=== PATIENT | male | born 1950 | race Caucasian/White ===

== ENCOUNTER 2017-04-16 14:42 | Emergency (ER) | payer MEDICARE ==
[2017-04-16 15:59] LABS: Basophils % (Auto) 0.4 % (0.0-1.8); Eosinophils % (Auto) 0.3 % (0.0-4.3); Hematocrit 36.4 % (35.5-45.6); Hemoglobin 12.2 gm/dl (11.8-15.2); Mean Corpuscular HGB Conc 33 % (32-34); Mean Corpuscular Hemoglobin 28 pg (28-32); Mean Corpuscular Volume 83 fl (84-94); Platelet Count 162 K/mm3 (140-440); Red Blood Count 4.39 M/mm3 (3.65-5.03); Red Cell Distribution Width 16.2 % (13.2-15.2); White Blood Count 7.6 K/mm3 (4.5-11.0)
[2017-04-16 16:10] LABS: BUN/Creatinine Ratio 22; Blood Urea Nitrogen 13 mg/dL (9-20); Calcium 8.1 mg/dL (8.4-10.2); Carbon Dioxide 28 mmol/L (22-30); Glucose 123 mg/dL (75-100)
[2017-04-16 16:11] LABS: Anion Gap 15 mmol/L; Chloride 101.7 mmol/L (98-107); Potassium 3.6 mmol/L (3.6-5.0); Sodium 141 mmol/L (137-145)
--- NOTE | 2017-04-16 21:12 | Emergency Department Report ---
HPI - General Chief Complaint: Chest Pain Time Seen by Provider: 04/16/17 20:51 - HPI HPI: Room 3 The patient is a 66-year-old male presented with a chief complaint of back pain. The patient stated this morning when he awakened he noticed pain behind his left shoulder blade described as a heaviness. Patient also complains of pain from the base of his neck radiating to the left shoulder blade. Patient states the pain worsens whenever he turns his head. Patient denies chest pain, shortness of breath or cough. Patient denies fever, nausea/vomiting or headache. The patient currently gives his pain a score of 10/10 Location: Left back, neck Duration: Constant since this morning Quality: Heaviness Severity: 10/10 Modifying factors: Turning head increases pain Context: [see above] Mode of transportation: [not driving] ED Past Medical Hx - Past Medical History Previous Medical History?: Yes Hx Hypertension: Yes Additional medical history: sleep apnea, gout, carpal tunnel - Surgical History Hx Appendectomy: Yes Additional Surgical History: hernia repair, bilat carpal tunnel repair, hip replacement - Family History Family history: no significant - Social History Smoking Status: Never Smoker Substance Use Type: None (denies illicit drug use), Alcohol (occasional) - Medications Home Medications: Home Medications Medication Instructions Recorded Confirmed Last Taken Type Allopurinol [Zyloprim] 300 mg PO QDAY 01/27/17 01/27/17 1 Day Ago History ~01/26/17 300 Carvedilol [Coreg] 6.25 mg PO DAILY 01/27/17 01/27/17 1 Day Ago History ~01/26/17 6.25 Lisinopril [Zestril TAB] 40 mg PO QDAY 01/27/17 01/27/17 1 Day Ago History ~01/26/17 40 amLODIPine [Norvasc] 10 mg PO DAILY 01/27/17 01/27/17 1 Day Ago History ~01/26/17 10 Aspirin EC [Aspirin Enteric Coated 81 mg PO QDAY #30 tablet. 01/30/17 Unknown Rx TAB] Colchicine [Colcrys] 0.6 mg PO QDAY #14 tablet 01/30/17 Unknown Rx Pantoprazole [Protonix] 40 mg PO QDAY #30 tablet 01/30/17 Unknown Rx predniSONE [Deltasone] 20 mg PO BID #14 tablet 01/30/17 Unknown Rx Cyclobenzaprine [Flexeril] 10 mg PO TID PRN #20 tablet 04/16/17 Unknown Rx HYDROcodone/APAP 5-325 [[place] 1 - 2 each PO Q6HR PRN #14 tablet 04/16/17 Unknown Rx 5/325] Ibuprofen [Motrin] 800 mg PO Q8HR PRN #20 tablet 04/16/17 Unknown Rx ED Review of Systems ROS: Stated complaint: LEFT SIDE SHOULDER/BACK PAIN Other details as noted in HPI Constitutional: denies: fever ENT: other (denies rhinorrhea) Respiratory: denies: cough, shortness of breath Cardiovascular: denies: chest pain Gastrointestinal: denies: nausea, vomiting Genitourinary: denies: dysuria Musculoskeletal: back pain, myalgia Neurological: denies: headache Physical Exam - Physical Exam Vital Signs: Vital Signs 04/16/17 04/16/17 15:02 20:30 Temperature 98.1 F 99 F Pulse Rate 81 74 Respiratory 100 H 22 Rate Blood Pressure 164/82 Blood Pressure 168/91 [Left] O2 Sat by Pulse 97 Oximetry Physical Exam: GENERAL: The patient is well-developed well-nourished male lying on stretcher not appearing to be in acute distress. [] HEENT: Normocephalic. Atraumatic. Extraocular motions are intact. Patient has moist mucous membranes. NECK: Supple. No meningitic signs are noted. Trachea midline CHEST/LUNGS: Clear to auscultation. There is no respiratory distress noted. HEART/CARDIOVASCULAR: Regular. There is no tachycardia. There is no gallop rub or murmur. ABDOMEN: Abdomen is soft, nontender. Patient has normal bowel sounds. There is no abdominal distention. SKIN: There is no rash. There is no edema. There is no diaphoresis. NEURO: The patient is awake, alert, and oriented. The patient is cooperative. The patient has no focal neurologic deficits. The patient has normal speech. Cranial nerves II through XII grossly intact MUSCULOSKELETAL: There is no tenderness or deformity. There is pain elicited in the left back when the the patient pushes anteriorly with a left upper extremity against resistance. There is no evidence of acute injury. ED Course Vital Signs 04/16/17 04/16/17 15:02 20:30 Temperature 98.1 F 99 F Pulse Rate 81 74 Respiratory 100 H 22 Rate Blood Pressure 164/82 Blood Pressure 168/91 [Left] O2 Sat by Pulse 97 Oximetry ED Medical Decision Making - Lab Data Result diagrams: 04/16/17 15:16 04/16/17 15:16 - EKG Data -: EKG Interpreted by Ut EKG shows normal: sinus rhythm Rate: normal - EKG Data Interpretation: nonspecific ST-T wave bryan (T-wave inversions in leads 1 and aVL. ) - Radiology Data Radiology results: report reviewed (CT chest, CT cervical spine), image reviewed (CT chest, CT cervical spine) FINAL REPORT PROCEDURE: CT ANGIO CHEST TECHNIQUE: Computerized tomographic angiography of the chest was performed after the IV injection of iodinated nonionic contrast including image processing. The image data was postprocessed using 2-dimensional multiplanar reformatted (MPR) and 3-dimensional (MIP and/or volume rendered) techniques. HISTORY: pain behind left shoulder blade COMPARISON: No prior studies are available for comparison. FINDINGS: Bilateral lungs and pleural spaces are clear. Bilateral pulmonary arteries demonstrate normal enhancement without filling defects. Aorta is of normal caliber without dissection. Thyroid demonstrates normal size and density. Hilar structures are within normal limits. There is no lymphadenopathy. There is moderate cardiomegaly. Visualized upper abdominal structures are within normal limits except for simple cysts noted in bilateral kidneys. Moderate degree degenerative changes in the form of marginal osteophytes is noted involving mid and lower thoracic spine. Vacuum phenomenon is noted involving multiple mid thoracic intervertebral discs. IMPRESSION: No acute pulmonary process. No evidence of pulmonary embolism. No evidence of aortic aneurysm or dissection. Moderate cardiomegaly. Moderate degree thoracic spondylosis Transcribed By: [facility] Dictated By: ELIEL FELIX Electronically Authenticated By: ELIEL FELIX Signed Date/Time: 04/16/171819 DD/ 19 TD/TT: 04/16/171819 FINAL REPORT PROCEDURE: CT CERVICAL SPINE WO CON TECHNIQUE: Computerized tomography of the cervical spine was performed from the skull base to T1 without contrast material. HISTORY: neck pain radiating to left upper extremity COMPARISON: No prior studies are available for comparison. FINDINGS: Vertebral alignment and height are within normal limits. An acute fracture is not identified. A benign-appearing sclerotic lesion measuring 8 millimeters is noted involving the inferior left portion of 4th cervical vertebral body. C1-2: There is narrowing of the atlantoaxial joint space with osteophyte formation.. C2-3: No significant abnormality. C3-4: No significant abnormality. C4-5: Minimal degree left neural foraminal stenosis is noted secondary to uncovertebral and facet degenerative changes.. C5-6: Mild degree of broad-based disc osteophyte complex is noted eccentric to the right without significant spinal canal compromise. Mild degree left-sided and moderate degree right-sided neural foraminal stenosis is noted secondary to uncovertebral and facet degenerative changes. C6-7: Mild degree bilateral neural foraminal stenosis is noted secondary to uncovertebral and facet degenerative changes. C7-T1: No significant abnormality. Other: Atherosclerotic calcification is noted involving bilateral carotid bifurcations.. IMPRESSION: Multilevel cervical spondylosis as described above. No acute fracture. Atherosclerotic calcification is noted involving bilateral carotid bifurcations. Ultrasound evaluation is recommended.. Transcribed By: [facility] Dictated By: ELIEL FELIX Electronically Authenticated By: ELIEL FELIX Signed Date/Time: 04/16/171828 DD/ 28 TD/TT: 04/16/171828 - Differential Diagnosis cervical radiculopathy, PE, ACS, rotator cuff injury Critical care attestation.: If time is entered above; I have spent that time in minutes in the direct care of this critically ill patient, excluding procedure time. ED Disposition Clinical Impression: Neck pain, Cervical spondylosis Disposition: TO HOME OR SELFCARE Is pt being admited?: No Does the pt Need Aspirin: No Condition: Stable Instructions: Rotator Cuff Injury (ED), Cervical Radiculopathy (ED) Additional Instructions: Return to the emergency department immediately should you develop worsening symptoms, fever, inability to tolerate food or liquid or any other concerns. Prescriptions: Cyclobenzaprine [Flexeril] 10 mg PO TID PRN #20 tablet PRN Reason: Muscle Spasm HYDROcodone/APAP 5-325 [[place] 5/325] 1 - 2 each PO Q6HR PRN #14 tablet PRN Reason: Pain Ibuprofen [Motrin] 800 mg PO Q8HR PRN #20 tablet PRN Reason: Pain Referrals: PRIMARY CARE, [Primary Care Provider] - 3-5 Days JEFFERY RIOS MD [Staff Physician] - 3-5 Days Time of Disposition: 22:39
--- NOTE | 2017-04-16 22:22 | Cat Scan Report ---
FINAL REPORT PROCEDURE: CT ANGIO CHEST TECHNIQUE: Computerized tomographic angiography of the chest was performed after the IV injection of iodinated nonionic contrast including image processing. The image data was postprocessed using 2-dimensional multiplanar reformatted (MPR) and 3-dimensional (MIP and/or volume rendered) techniques. HISTORY: pain behind left shoulder blade COMPARISON: No prior studies are available for comparison. FINDINGS: Bilateral lungs and pleural spaces are clear. Bilateral pulmonary arteries demonstrate normal enhancement without filling defects. Aorta is of normal caliber without dissection. Thyroid demonstrates normal size and density. Hilar structures are within normal limits. There is no lymphadenopathy. There is moderate cardiomegaly. Visualized upper abdominal structures are within normal limits except for simple cysts noted in bilateral kidneys. Moderate degree degenerative changes in the form of marginal osteophytes is noted involving mid and lower thoracic spine. Vacuum phenomenon is noted involving multiple mid thoracic intervertebral discs. IMPRESSION: No acute pulmonary process. No evidence of pulmonary embolism. No evidence of aortic aneurysm or dissection. Moderate cardiomegaly. Moderate degree thoracic spondylosis
--- NOTE | 2017-04-16 22:31 | Cat Scan Report ---
FINAL REPORT PROCEDURE: CT CERVICAL SPINE WO CON TECHNIQUE: Computerized tomography of the cervical spine was performed from the skull base to T1 without contrast material. HISTORY: neck pain radiating to left upper extremity COMPARISON: No prior studies are available for comparison. FINDINGS: Vertebral alignment and height are within normal limits. An acute fracture is not identified. A benign-appearing sclerotic lesion measuring 8 millimeters is noted involving the inferior left portion of 4th cervical vertebral body. C1-2: There is narrowing of the atlantoaxial joint space with osteophyte formation.. C2-3: No significant abnormality. C3-4: No significant abnormality. C4-5: Minimal degree left neural foraminal stenosis is noted secondary to uncovertebral and facet degenerative changes.. C5-6: Mild degree of broad-based disc osteophyte complex is noted eccentric to the right without significant spinal canal compromise. Mild degree left-sided and moderate degree right-sided neural foraminal stenosis is noted secondary to uncovertebral and facet degenerative changes. C6-7: Mild degree bilateral neural foraminal stenosis is noted secondary to uncovertebral and facet degenerative changes. C7-T1: No significant abnormality. Other: Atherosclerotic calcification is noted involving bilateral carotid bifurcations.. IMPRESSION: Multilevel cervical spondylosis as described above. No acute fracture. Atherosclerotic calcification is noted involving bilateral carotid bifurcations. Ultrasound evaluation is recommended..
[2017-04-16 22:56] VITALS: BP 145/85
== END 2017-04-16 23:00 | disposition home or self-care (01) ==
LOC: ED 14:42
DX: M54.2 Cervicalgia (principal); M47.9 Spondylosis, unspecified; I10 Essential (primary) hypertension
CPT/HCPCS: 36415; 71275; 72125; 80048; 84484; 85025; 93005; 93010; 99284; Q9967

== ENCOUNTER 2017-05-18 22:17 | Emergency (ER) | payer MEDICARE ==
[2017-05-18] MEDS ORDERED: ZOFRAN IM ONE (23:20)
[2017-05-18] MEDS ORDERED: MORPHINE IM ONE (23:20)
--- NOTE | 2017-05-18 23:25 | Emergency Department Report ---
ED Back Pain/Injury HPI - General Chief Complaint: Extremity Injury, Lower Stated Complaint: RIGHT LEG PAIN/SWELLING Time Seen by Provider: 05/18/17 23:14 Source: patient Limitations: No Limitations - History of Present Illness Initial Comments: Patient is 66-year-old male with history of hypertension and arthritis, presented to the ER with a chief complaint of lower back pain that radiated to his right leg. Patient stated that his pain is being for more than a month that he get worse since last night. Patient denied any weakness, numbness or tingling sensation, no bowel or bladder incontinence, no fever. MD Complaint: back pain -: month(s) Similar Symptoms Previously: Yes Place: home Severity: moderate Severity scale (0 -10): 7 Quality: sharp Improves With: immobilization Worsens With: movement Context: turning/twisting Associated Symptoms: denies other symptoms. denies: confusion, weakness, chest pain, numbness, difficulty walking, cough, difficulty urinating, diaphoresis, incontinence, fever/chills, constipation, headaches, abdominal pain, loss of appetite, malaise, nausea/vomiting, rash, seizure, shortness of breath, syncope - Related Data Home Medications Medication Instructions Recorded Confirmed Last Taken Allopurinol [Zyloprim] 300 mg PO QDAY 01/27/17 01/27/17 1 Day Ago ~01/26/17 300 Carvedilol [Coreg] 6.25 mg PO DAILY 01/27/17 01/27/17 1 Day Ago ~01/26/17 6.25 Lisinopril [Zestril TAB] 40 mg PO QDAY 01/27/17 01/27/17 1 Day Ago ~01/26/17 40 amLODIPine [Norvasc] 10 mg PO DAILY 01/27/17 01/27/17 1 Day Ago ~01/26/17 10 Previous Rx's Medication Instructions Recorded Last Taken Type Aspirin EC [Aspirin Enteric Coated 81 mg PO QDAY #30 tablet. 01/30/17 Unknown Rx TAB] Colchicine [Colcrys] 0.6 mg PO QDAY #14 tablet 01/30/17 Unknown Rx Pantoprazole [Protonix] 40 mg PO QDAY #30 tablet 01/30/17 Unknown Rx predniSONE [Deltasone] 20 mg PO BID #14 tablet 01/30/17 Unknown Rx Cyclobenzaprine [Flexeril] 10 mg PO TID PRN #20 tablet 04/16/17 Unknown Rx HYDROcodone/APAP 5-325 [[place] 1 - 2 each PO Q6HR PRN #14 tablet 04/16/17 Unknown Rx 5/325] Ibuprofen [Motrin] 800 mg PO Q8HR PRN #20 tablet 04/16/17 Unknown Rx Allergies Allergy/AdvReac Type Severity Reaction Status Date / Time Penicillins Allergy Itching Verified 10/13/13 11:17 ED Review of Systems ROS: Stated complaint: RIGHT LEG PAIN/SWELLING Other details as noted in HPI Comment: All other systems reviewed and negative Constitutional: denies: chills, fever Respiratory: denies: cough, shortness of breath, SOB with exertion Cardiovascular: denies: chest pain, palpitations, dyspnea on exertion Gastrointestinal: denies: abdominal pain, nausea, vomiting Genitourinary: denies: urgency, dysuria, frequency, hematuria Musculoskeletal: back pain. denies: joint swelling, arthralgia, myalgia Neurological: denies: headache, weakness, numbness, paresthesias ED Past Medical Hx - Past Medical History Previous Medical History?: Yes Hx Hypertension: Yes Additional medical history: sleep apnea, gout, carpal tunnel - Surgical History Past Surgical History?: Yes Hx Appendectomy: Yes Additional Surgical History: hernia repair, bilat carpal tunnel repair, knee replacement - Social History Smoking Status: Never Smoker Substance Use Type: None - Medications Home Medications: Home Medications Medication Instructions Recorded Confirmed Last Taken Type Allopurinol [Zyloprim] 300 mg PO QDAY 01/27/17 01/27/17 1 Day Ago History ~01/26/17 300 Carvedilol [Coreg] 6.25 mg PO DAILY 01/27/17 01/27/17 1 Day Ago History ~01/26/17 6.25 Lisinopril [Zestril TAB] 40 mg PO QDAY 01/27/17 01/27/17 1 Day Ago History ~01/26/17 40 amLODIPine [Norvasc] 10 mg PO DAILY 01/27/17 01/27/17 1 Day Ago History ~01/26/17 10 Aspirin EC [Aspirin Enteric Coated 81 mg PO QDAY #30 tablet. 01/30/17 Unknown Rx TAB] Colchicine [Colcrys] 0.6 mg PO QDAY #14 tablet 01/30/17 Unknown Rx Pantoprazole [Protonix] 40 mg PO QDAY #30 tablet 01/30/17 Unknown Rx predniSONE [Deltasone] 20 mg PO BID #14 tablet 01/30/17 Unknown Rx Cyclobenzaprine [Flexeril] 10 mg PO TID PRN #20 tablet 04/16/17 Unknown Rx HYDROcodone/APAP 5-325 [[place] 1 - 2 each PO Q6HR PRN #14 tablet 04/16/17 Unknown Rx 5/325] Ibuprofen [Motrin] 800 mg PO Q8HR PRN #20 tablet 04/16/17 Unknown Rx ED Physical Exam - General Limitations: No Limitations General appearance: alert, in no apparent distress - Head Head exam: Present: atraumatic, normocephalic - Eye Eye exam: Present: normal appearance, PERRL - ENT ENT exam: Present: normal exam, mucous membranes moist - Neck Neck exam: Present: normal inspection, full ROM. Absent: tenderness, meningismus, lymphadenopathy, thyromegaly - Respiratory Respiratory exam: Present: normal lung sounds bilaterally. Absent: respiratory distress, wheezes, rales, rhonchi, stridor, chest wall tenderness, accessory muscle use, decreased breath sounds, prolonged expiratory - Cardiovascular Cardiovascular Exam: Present: regular rate, normal rhythm, normal heart sounds. Absent: bradycardia, tachycardia - GI/Abdominal GI/Abdominal exam: Present: soft, normal bowel sounds. Absent: distended, tenderness, guarding, rebound, rigid, organomegaly, mass, bruit, pulsatile mass , hernia - Extremities Exam Extremities exam: Present: normal inspection, full ROM, normal capillary refill - Back Exam Back exam: Present: normal inspection. Absent: CVA tenderness (R), CVA tenderness (L) - Neurological Exam Neurological exam: Present: alert, oriented X3, CN II-XII intact, normal gait - Skin Skin exam: Present: warm, intact, normal color ED Course Vital Signs 05/18/17 05/18/17 05/18/17 22:24 23:07 23:40 Temperature 99.1 F Pulse Rate 101 H Respiratory 18 18 Rate Blood Pressure 182/97 172/91 O2 Sat by Pulse 96 98 93 Oximetry 05/19/17 00:00 Temperature Pulse Rate Respiratory Rate Blood Pressure 172/91 O2 Sat by Pulse 90 Oximetry - Reevaluation(s) Reevaluation #1: 05/19/17 01:17 Patient stated that he is feeling much better. I informed him about his x-ray results and the need to follow-up with his primary care physician for possible referral to orthopedic doctor. ED Medical Decision Making - Radiology Data Radiology results: report reviewed Referring Physician: ADRYAN ANDINO Patient Name: ABBEY STARK Date of : 1950 Sex: Male Report Date: 2017-05-18 Report Status: Finalized Findings [facility] [address] [place] [address] XRay Report Signed Patient: ABBEY STARK MR#: [id number] : 1950 Acct:[id number] Age/Sex: 66 / M ADM Date: 05/18/17 Loc: ED Attending Dr: Ordering Physician: ADRYAN ANDINO Date of Service: 05/18/17 Procedure(s): XR spine lumbosacral 2-3V Accession Number(s): [id number] cc: ADRYAN ANDINO Fluoro Time In Minutes: FINAL REPORT EXAM: XR SPINE LUMBOSACRAL 2-3V HISTORY: BACK INJURY COMPARISON: None available. FINDINGS: Two views of the lumbar spine obtained. Lumbar vertebral body heights are preserved. Grade 1-2 anterolisthesis of L4 on L5 by 11 millimeter secondary to prominent facet changes. No definite pars defects. Moderate loss of disc height L4-L5 and L5-S1 levels. Prominent facet changes at those levels. Mild loss of disc height endplate osteophyte throughout the remainder of the lumbar spine. IMPRESSION: Lumbar vertebral body heights are preserved. Grade 1-2 anterolisthesis of L4 on L5 due to prominent facet changes. No definite bilateral pars defects. Moderate loss of disc height L4-L5 and L5-S1 levels with prominent facet changes. Mild degenerative changes throughout the remainder of the lumbar spine. Transcribed By: [facility] Dictated By: CHRISTINE MANLEY MD Electronically Authenticated By: CHRISTINE MANLEY MD Signed Date/Time: 05/18/171944 DD/ 44 TD/TT: 05/18/171944 Critical care attestation.: If time is entered above; I have spent that time in minutes in the direct care of this critically ill patient, excluding procedure time. ED Disposition Clinical Impression: Back pain, Acute lumbar radiculopathy Disposition: TO HOME OR SELFCARE Is pt being admited?: No Condition: Stable Instructions: Acute Low Back Pain (ED), Lumbar Radiculopathy (ED), Sciatica (ED ) Referrals: PRIMARY CARE, [Primary Care Provider] - 3-5 Days
--- NOTE | 2017-05-18 23:49 | XRay Report ---
FINAL REPORT EXAM: XR SPINE LUMBOSACRAL 2-3V HISTORY: BACK INJURY COMPARISON: None available. FINDINGS: Two views of the lumbar spine obtained. Lumbar vertebral body heights are preserved. Grade 1-2 anterolisthesis of L4 on L5 by 11 millimeter secondary to prominent facet changes. No definite pars defects. Moderate loss of disc height L4-L5 and L5-S1 levels. Prominent facet changes at those levels. Mild loss of disc height endplate osteophyte throughout the remainder of the lumbar spine. IMPRESSION: Lumbar vertebral body heights are preserved. Grade 1-2 anterolisthesis of L4 on L5 due to prominent facet changes. No definite bilateral pars defects. Moderate loss of disc height L4-L5 and L5-S1 levels with prominent facet changes. Mild degenerative changes throughout the remainder of the lumbar spine.
[2017-05-19] MEDS ORDERED: DILAUDID IM ONE (00:28)
[2017-05-19 01:43] VITALS: BP 144/92
== END 2017-05-19 01:47 | disposition home or self-care (01) ==
LOC: ED 22:17
DX: M54.16 Radiculopathy, lumbar region (principal); I10 Essential (primary) hypertension; Z79.82 Long term (current) use of aspirin; Z88.0 Allergy status to penicillin
CPT/HCPCS: 72100; 96372; 99283; J1170; J2405; J2930; J2270

== ENCOUNTER 2017-06-18 21:19 | Emergency (ER) | payer MEDICARE ==
[2017-06-18] MEDS ORDERED: ASPIRIN PO ONE (21:29)
[2017-06-18 22:05] LABS: Basophils % (Auto) 0.5 % (0.0-1.8); Eosinophils # (Auto) 0.1 K/mm3 (0.0-0.4); Eosinophils % (Auto) 1.2 % (0.0-4.3); Hemoglobin 12.1 gm/dl (11.8-15.2); Lymphocytes # (Auto) 1.8 K/mm3 (1.2-5.4); Lymphocytes % (Auto) 28.8 % (13.4-35.0); Mean Corpuscular HGB Conc 33 % (32-34); Mean Corpuscular Volume 80 fl (84-94); Monocytes # (Auto) 0.4 K/mm3 (0.0-0.8); Monocytes % (Auto) 6.9 % (0.0-7.3); Platelet Count 212 K/mm3 (140-440); Red Blood Count 4.66 M/mm3 (3.65-5.03); Red Cell Distribution Width 16.4 % (13.2-15.2)
[2017-06-18 22:18] LABS: BUN/Creatinine Ratio 17; Blood Urea Nitrogen 12 mg/dL (9-20); Calcium 8.5 mg/dL (8.4-10.2); Hemolysis Index 11
[2017-06-18 22:37] LABS: Mean Corpuscular Hemoglobin 26 pg (28-32)
[2017-06-19 01:09] VITALS: BP 167/89
== END 2017-06-19 05:38 | disposition left against medical advice (07) ==
LOC: ED 21:19
DX: R07.9 Chest pain, unspecified (principal); Z53.21 Procedure and treatment not carried out due to patient leaving prior to being seen by health care provider
CPT/HCPCS: 36415; 80048; 84484; 85025; 93005; 93010

== ENCOUNTER 2017-09-26 01:01 | Emergency (ER) | payer MEDICARE ==
[2017-09-26] MEDS ORDERED: ASPIRIN PO ONE (01:30)
[2017-09-26 02:02] LABS: Basophils % (Auto) 0.5 % (0.0-1.8); Eosinophils # (Auto) 0.1 K/mm3 (0.0-0.4); Eosinophils % (Auto) 1.5 % (0.0-4.3); Hematocrit 34.6 % (35.5-45.6); Hemoglobin 11.6 gm/dl (11.8-15.2); Lymphocytes # (Auto) 2.1 K/mm3 (1.2-5.4); Lymphocytes % (Auto) 45.7 % (13.4-35.0); Mean Corpuscular HGB Conc 34 % (32-34); Mean Corpuscular Hemoglobin 27 pg (28-32); Mean Corpuscular Volume 80 fl (84-94); Monocytes # (Auto) 0.4 K/mm3 (0.0-0.8); Monocytes % (Auto) 8.4 % (0.0-7.3); Platelet Count 160 K/mm3 (140-440); Red Blood Count 4.35 M/mm3 (3.65-5.03); Red Cell Distribution Width 17.3 % (13.2-15.2)
[2017-09-26 02:08] LABS: BUN/Creatinine Ratio 17; Blood Urea Nitrogen 12 mg/dL (9-20); Hemolysis Index 0
--- NOTE | 2017-09-26 02:13 | Emergency Department Report ---
HPI - General Chief Complaint: Chest Pain Time Seen by Provider: 09/26/17 01:41 - HPI HPI: 67-year-old male presents to the ED with chest pain chest pain, onset 1 hour prior to evaluation while at rest, Location: mid chest Radiation: none, Severity now (0-10): 2, Severity at worst (0-10): 8 Duration: 5 minutes characterized as: sharp. The pain is relieved with nitroglycerin, Patient denies exertional pain, patient denies pleuritic pain. Patient denies associated symptoms, such as nausea/vomiting, no diaphoresis, no shortness of breath. Patient has a seizure about blood pressure but no diabetes. ED Past Medical Hx - Past Medical History Hx Hypertension: Yes Hx CVA: No Additional medical history: sleep apnea, gout, carpal tunnel - Surgical History Hx Appendectomy: Yes Additional Surgical History: hernia repair, bilat carpal tunnel repair, knee replacement - Social History Smoking Status: Never Smoker Substance Use Type: None - Medications Home Medications: Home Medications Medication Instructions Recorded Confirmed Last Taken Type Allopurinol [Zyloprim] 300 mg PO QDAY 01/27/17 01/27/17 1 Day Ago History ~01/26/17 300 Carvedilol [Coreg] 6.25 mg PO DAILY 01/27/17 01/27/17 1 Day Ago History ~01/26/17 6.25 Lisinopril [Zestril TAB] 40 mg PO QDAY 01/27/17 01/27/17 1 Day Ago History ~01/26/17 40 amLODIPine [Norvasc] 10 mg PO DAILY 01/27/17 01/27/17 1 Day Ago History ~01/26/17 10 Aspirin EC [Aspirin Enteric Coated 81 mg PO QDAY #30 tablet. 01/30/17 Unknown Rx TAB] Colchicine [Colcrys] 0.6 mg PO QDAY #14 tablet 01/30/17 Unknown Rx Pantoprazole [Protonix] 40 mg PO QDAY #30 tablet 01/30/17 Unknown Rx predniSONE [Deltasone] 20 mg PO BID #14 tablet 01/30/17 Unknown Rx Cyclobenzaprine [Flexeril] 10 mg PO TID PRN #20 tablet 04/16/17 Unknown Rx HYDROcodone/APAP 5-325 [[place] 1 - 2 each PO Q6HR PRN #14 tablet 04/16/17 Unknown Rx 5/325] Ibuprofen [Motrin] 800 mg PO Q8HR PRN #20 tablet 04/16/17 Unknown Rx HYDROcodone/APAP 5-325 [[place] 1 each PO Q6HR PRN #14 tablet 05/19/17 Unknown Rx 5/325] Metaxalone [Skelaxin] 800 mg PO TID #30 tablet 05/19/17 Unknown Rx Ondansetron [Zofran Odt] 4 mg PO Q8HR PRN #14 tab.rapdis 05/19/17 Unknown Rx Prednisone [predniSONE 10 mg 10 mg PO .TAPER #1 tab.ds.pk 05/19/17 Unknown Rx (6-Day Pack, 21 Tabs)] ED Review of Systems ROS: Stated complaint: CHEST PAIN Other details as noted in HPI Comment: All other systems reviewed and negative Respiratory: denies: cough, orthopnea Cardiovascular: chest pain. denies: dyspnea on exertion Endocrine: denies: no symptoms reported Physical Exam - Physical Exam Vital Signs: Vital Signs 09/26/17 01:24 Temperature 98.0 F Pulse Rate 67 Respiratory 20 Rate Blood Pressure 176/96 O2 Sat by Pulse 97 Oximetry Physical Exam: - Physical Exam Physical Exam: - General Limitations: No Limitations General appearance: alert, in no apparent distress, obese - Head Head exam: Present: atraumatic, normocephalic - Eye Eye exam: Present: normal appearance - ENT ENT exam: Present: mucous membranes moist - Neck Neck exam: Present: normal inspection - Respiratory Respiratory exam: Present: normal lung sounds bilaterally. Absent: respiratory distress - Cardiovascular Cardiovascular Exam: Present: normal rhythm. Absent: systolic murmur, diastolic murmur, rubs, gallop - GI/Abdominal GI/Abdominal exam: Present: soft, normal bowel sounds - Extremities Exam Extremities exam: Present: normal inspection - Back Exam Back exam: Present: normal inspection - Neurological Exam Neurological exam: Present: alert, oriented X3 - Psychiatric Psychiatric exam: normal affect and mood - Skin Skin exam: Present: warm, dry, intact, normal color. Absent: rash ED Course Vital Signs 09/26/17 01:24 Temperature 98.0 F Pulse Rate 67 Respiratory 20 Rate Blood Pressure 176/96 O2 Sat by Pulse 97 Oximetry - Reevaluation(s) Reevaluation #1: 09/26/17 05:48 patient refused admission, wants to go home, states he is not hurting. ED Medical Decision Making - Lab Data Result diagrams: 09/26/17 01:36 09/26/17 01:36 Critical care attestation.: If time is entered above; I have spent that time in minutes in the direct care of this critically ill patient, excluding procedure time. ED Disposition Clinical Impression: Chest pain Disposition: DC-01 TO HOME OR SELFCARE Is pt being admited?: No Does the pt Need Aspirin: No Condition: Stable Instructions: Chest Pain (ED) Referrals: MARGARITA ROSARIO MD [Primary Care Provider] - 3-5 Days Forms: Work/School Release Form(ED)
[2017-09-26 05:58] VITALS: BP 163/84
== END 2017-09-26 07:14 | disposition home or self-care (01) ==
LOC: ED 01:01
DX: R07.9 Chest pain, unspecified (principal)
CPT/HCPCS: 36415; 80048; 84484; 85025; 93005; 93010

== ENCOUNTER 2018-10-23 02:45 | Observation (INO) | payer MEDICARE ==
--- NOTE | 2018-10-23 02:57 | Emergency Department Report ---
HPI - General Chief Complaint: Allergic Reaction Time Seen by Provider: 10/23/18 02:57 - HPI HPI: 68-year-old male with a past medical history of hypertension, obesity, and sleep apnea as the hospital complaining of left tongue swelling since this morning. Patient went to bed normal and woke up short of breath and noticed that the left side of his tongue was swollen. Patient has been on lisinopril for many years with last dose yesterday a.m. He denies any difficulty swallowing. ED Past Medical Hx - Past Medical History Previous Medical History?: Yes Hx Hypertension: Yes Hx CVA: No Additional medical history: sleep apnea, gout, carpal tunnel - Surgical History Past Surgical History?: Yes Hx Appendectomy: Yes Additional Surgical History: hernia repair, bilat carpal tunnel repair, knee replacement - Social History Smoking Status: Former Smoker Substance Use Type: None - Medications Home Medications: Home Medications Medication Instructions Recorded Confirmed Last Taken Type Allopurinol [Zyloprim] 300 mg PO QDAY 01/27/17 01/27/17 1 Day Ago History ~01/26/17 300 Carvedilol [Coreg] 6.25 mg PO DAILY 01/27/17 01/27/17 1 Day Ago History ~01/26/17 6.25 Lisinopril [Zestril TAB] 40 mg PO QDAY 01/27/17 01/27/17 1 Day Ago History ~01/26/17 40 amLODIPine [Norvasc] 10 mg PO DAILY 01/27/17 01/27/17 1 Day Ago History ~01/26/17 10 Aspirin EC 81 mg PO QDAY #30 tablet. 01/30/17 Unknown Rx Colchicine [Colcrys] 0.6 mg PO QDAY #14 tablet 01/30/17 Unknown Rx Pantoprazole [Protonix] 40 mg PO QDAY #30 tablet 01/30/17 Unknown Rx predniSONE [Deltasone] 20 mg PO BID #14 tablet 01/30/17 Unknown Rx Cyclobenzaprine [Flexeril] 10 mg PO TID PRN #20 tablet 04/16/17 Unknown Rx HYDROcodone/APAP 5-325 [[place] 1 - 2 each PO Q6HR PRN #14 tablet 04/16/17 Unknown Rx 5/325] Ibuprofen [Motrin] 800 mg PO Q8HR PRN #20 tablet 04/16/17 Unknown Rx HYDROcodone/APAP 5-325 [[place] 1 each PO Q6HR PRN #14 tablet 05/19/17 Unknown Rx 5/325] Metaxalone [Skelaxin] 800 mg PO TID #30 tablet 05/19/17 Unknown Rx Ondansetron [Zofran Odt] 4 mg PO Q8HR PRN #14 tab.rapdis 05/19/17 Unknown Rx Prednisone [predniSONE 10 mg 10 mg PO .TAPER #1 tab.ds.pk 05/19/17 Unknown Rx (6-Day Pack, 21 Tabs)] ED Review of Systems ROS: Stated complaint: SWOLLEN TONGUE Other details as noted in HPI Comment: All other systems reviewed and negative Physical Exam - Physical Exam Physical Exam: General: No limitations, patient is alert in no acute distress Head exam: Atraumatic, normocephalic Eyes exam: Normal appearance, pupils equal reactive to light, extraocular movements intact ENT: Moist mucous membrane, swelling I the left side of tongue, normal oropharynx without posterior pharyngeal edema, patient able to swallow secretions Neck exam: Normal inspection, full range of motion, no meningismus nontender, no stridor Respiratory exam: Clear to auscultation bilateral, no wheezes, rales, crackles Cardiovascular: Normal rate and rhythm, normal heart sounds Abdomen: Soft, nondistended, and nontender, with normal bowel sounds, no rebound, or guarding Extremity: Full range of motion normal inspection no deformity Back: Normal Inspection, full range of motion, no tenderness Neurologic: Alert, oriented x3, cranial nerves intact, no motor or sensory deficit Psychiatric: normal affect, normal mood Skin: Warm, dry, intact ED Medical Decision Making - Lab Data Result diagrams: 10/23/18 03:20 10/23/18 03:20 Lab Results 10/23/18 10/23/18 Range/Units 03:20 03:20 WBC 4.9 (4.5-11.0) K/mm3 RBC 3.93 (3.65-5.03) M/mm3 Hgb 10.7 L (11.8-15.2) gm/dl Hct 32.2 L (35.5-45.6) % MCV 82 L (84-94) fl MCH 27 L (28-32) pg MCHC 33 (32-34) % RDW 17.5 H (13.2-15.2) % Plt Count 242 (140-440) K/mm3 Lymph % (Auto) 38.4 H (13.4-35.0) % [place] % (Auto) 6.5 (0.0-7.3) % Eos % (Auto) 1.8 (0.0-4.3) % Baso % (Auto) 0.6 (0.0-1.8) % Lymph # 1.9 (1.2-5.4) K/mm3 [place] # 0.3 (0.0-0.8) K/mm3 Eos # 0.1 (0.0-0.4) K/mm3 Baso # 0.0 (0.0-0.1) K/mm3 Seg Neutrophils % 52.7 (40.0-70.0) % Seg Neutrophils # 2.6 (1.8-7.7) K/mm3 Sodium 141 (137-145) mmol/L Potassium 3.6 (3.6-5.0) mmol/L Chloride 105.1 (98-107) mmol/L Carbon Dioxide 25 (22-30) mmol/L Anion Gap 15 mmol/L BUN 18 (9-20) mg/dL Creatinine 0.8 (0.8-1.5) mg/dL Estimated GFR > 60 ml/min BUN/Creatinine Ratio 23 % Glucose 89 (75-100) mg/dL Calcium 7.9 L (8.4-10.2) mg/dL - Medical Decision Making Patient was treated with Decadron, Benadryl, Pepcid, and subcutaneous epi. Patient's symptoms have remained stable without any worsening or improvement. He will be admitted to the hospital for observation for tongue swelling related to FABRICIO inhibitor angioedema. - Differential Diagnosis allergic reaction, FABRICIO inhibitor angioedema Critical Care Time: No Critical care attestation.: If time is entered above; I have spent that time in minutes in the direct care of this critically ill patient, excluding procedure time. ED Disposition Clinical Impression: Angioedema, FABRICIO inhibitor-aggravated angioedema, Tongue swelling Disposition: OP ADMIT IP TO THIS HOSP Is pt being admited?: Yes Condition: Stable Time of Disposition: 04:30 (Dr Gupta/hosp)
[2018-10-23] MEDS ORDERED: BENADRYL IV ONE (02:58)
[2018-10-23] MEDS ORDERED: DECADRON IV ONE (02:58)
[2018-10-23] MEDS ORDERED: PEPCID IV ONE (03:00)
[2018-10-23] MEDS ORDERED: ADRENALINE P/F SUB-Q ONE (03:04)
[2018-10-23 03:38] LABS: Basophils % (Auto) 0.6 % (0.0-1.8); Eosinophils # (Auto) 0.1 K/mm3 (0.0-0.4); Eosinophils % (Auto) 1.8 % (0.0-4.3); Hematocrit 32.2 % (35.5-45.6); Hemoglobin 10.7 gm/dl (11.8-15.2); Lymphocytes # (Auto) 1.9 K/mm3 (1.2-5.4); Lymphocytes % (Auto) 38.4 % (13.4-35.0); Mean Corpuscular HGB Conc 33 % (32-34); Mean Corpuscular Volume 82 fl (84-94); Monocytes # (Auto) 0.3 K/mm3 (0.0-0.8); Monocytes % (Auto) 6.5 % (0.0-7.3); Platelet Count 242 K/mm3 (140-440); Red Blood Count 3.93 M/mm3 (3.65-5.03); Red Cell Distribution Width 17.5 % (13.2-15.2)
[2018-10-23 03:57] LABS: BUN/Creatinine Ratio 23; Blood Urea Nitrogen 18 mg/dL (9-20); Calcium 7.9 mg/dL (8.4-10.2); Hemolysis Index 8
[2018-10-23] MEDS ORDERED: ZOFRAN IV PRN (05:18)
[2018-10-23] MEDS ORDERED: TYLENOL PO PRN (05:18)
[2018-10-23] MEDS ORDERED: SODIUM CHLORIDE FLUSH SYRINGE 10 ML IV PRN (05:18)
[2018-10-23] MEDS ORDERED: BENADRYL IV PRN (05:47)
--- NOTE | 2018-10-23 05:53 | History and Physical Report ---
History of Present Illness Date of examination: 10/23/18 Chief complaint: Tongue swelling History of present illness: Patient is a 68-year-old male with history of hypertension and obstructive sleep apnea who presented to the ED on account of tongue swelling. Patient stated that he woke up this morning at about 2 AM with his tongue swollen. He has associated shortness of breath. No fever, chills, chest pain, orthopnea or PND. No headaches, nausea, vomiting, dizziness, syncope or loss of consciousness. He stated that he has been taking lisinopril for many years without any issues. Past History Past Medical History: hypertension, other (JENSEN on CPAP, Carpal tunnel syndrome, gout) Past Surgical History: appendectomy, hernia repair, total knee replacement (left), Other (carpal tunnel surgery) Social history: other (patient admits to occasional alcohol use but denies tobacco or illicit drug use) Family history: other (significant for kidney disease in the mother) Medications and Allergies Allergies Allergy/AdvReac Type Severity Reaction Status Date / Time Penicillins Allergy Itching Verified 10/13/13 11:17 lisinopril AdvReac Angioedema Verified 10/23/18 04:30 Home Medications Medication Instructions Recorded Confirmed Last Taken Type Carvedilol [Coreg] 6.25 mg PO DAILY 01/27/17 01/27/17 1 Day Ago History ~01/26/17 6.25 Lisinopril [Zestril TAB] 40 mg PO QDAY 01/27/17 01/27/17 1 Day Ago History ~01/26/17 40 amLODIPine [Norvasc] 10 mg PO DAILY 01/27/17 01/27/17 1 Day Ago History ~01/26/17 10 Colchicine [Colcrys] 0.6 mg PO PRN 10/23/18 10/23/18 Unknown History Active Meds: Active Medications Acetaminophen (Tylenol) 650 mg PO Q4H PRN PRN Reason: Pain MILD(1-3)/Fever >100.5/PEÑA Diphenhydramine HCl (Benadryl) 25 mg IV Q6H PRN PRN Reason: Itching Famotidine (Pepcid) 20 mg IV QDAY ELAINE Methylprednisolone Sodium Succinate (Solu-Medrol) 80 mg IV Q6HR ELAINE Ondansetron HCl (Zofran) 4 mg IV Q8H PRN PRN Reason: Nausea And Vomiting Sodium Chloride (Sodium Chloride Flush Syringe 10 Ml) 10 ml IV BID ELAINE Sodium Chloride (Sodium Chloride Flush Syringe 10 Ml) 10 ml IV PRN PRN PRN Reason: LINE FLUSH Review of Systems All systems: negative (except as documented in the HPI, 14 point system reviewed were negative) Exam - Constitutional Vitals: Temp Pulse Resp BP Pulse Ox 98.0 F 70 12 132/66 95 10/23/18 02:52 10/23/18 05:31 10/23/18 05:31 10/23/18 05:31 10/23/18 05:31 General appearance: Present: no acute distress - EENT Eyes: Present: PERRL, EOM intact ENT: hearing intact, clear oral mucosa, other (tongue swelling laterality) - Neck Neck: Present: supple, normal ROM - Respiratory Respiratory effort: normal Respiratory: bilateral: CTA - Cardiovascular Rhythm: regular Heart Sounds: Present: S1 & S2 - Extremities Extremities: pulses symmetrical Extremity abnormal: edema (in bilateral lower extremities) - Abdominal General gastrointestinal: Present: soft, non-tender, normal bowel sounds Male genitourinary: Present: deferred - Integumentary Integumentary: Present: clear, warm, dry - Musculoskeletal Musculoskeletal: strength equal bilaterally - Psychiatric Psychiatric: appropriate mood/affect, intact judgment & insight - Neurologic Neurologic: CNII-XII intact Results - Labs CBC & Chem 7: 10/23/18 03:20 10/23/18 03:20 Labs: Laboratory Last Values WBC 4.9 K/mm3 (4.5-11.0) 10/23/18 03:20 RBC 3.93 M/mm3 (3.65-5.03) 10/23/18 03:20 Hgb 10.7 gm/dl (11.8-15.2) L 10/23/18 03:20 Hct 32.2 % (35.5-45.6) L 10/23/18 03:20 MCV 82 fl (84-94) L 10/23/18 03:20 MCH 27 pg (28-32) L 10/23/18 03:20 MCHC 33 % (32-34) 10/23/18 03:20 RDW 17.5 % (13.2-15.2) H 10/23/18 03:20 Plt Count 242 K/mm3 (140-440) 10/23/18 03:20 Lymph % (Auto) 38.4 % (13.4-35.0) H 10/23/18 03:20 [place] % (Auto) 6.5 % (0.0-7.3) 10/23/18 03:20 Eos % (Auto) 1.8 % (0.0-4.3) 10/23/18 03:20 Baso % (Auto) 0.6 % (0.0-1.8) 10/23/18 03:20 Lymph # 1.9 K/mm3 (1.2-5.4) 10/23/18 03:20 [place] # 0.3 K/mm3 (0.0-0.8) 10/23/18 03:20 Eos # 0.1 K/mm3 (0.0-0.4) 10/23/18 03:20 Baso # 0.0 K/mm3 (0.0-0.1) 10/23/18 03:20 Seg Neutrophils % 52.7 % (40.0-70.0) 10/23/18 03:20 Seg Neutrophils # 2.6 K/mm3 (1.8-7.7) 10/23/18 03:20 Sodium 141 mmol/L (137-145) 10/23/18 03:20 Potassium 3.6 mmol/L (3.6-5.0) 10/23/18 03:20 Chloride 105.1 mmol/L (98-107) 10/23/18 03:20 Carbon Dioxide 25 mmol/L (22-30) 10/23/18 03:20 15 mmol/L 10/23/18 03:20 BUN 18 mg/dL (9-20) 10/23/18 03:20 0.8 mg/dL (0.8-1.5) 10/23/18 03:20 Estimated GFR > 60 ml/min 10/23/18 03:20 23 % 10/23/18 03:20 Glucose 89 mg/dL (75-100) 10/23/18 03:20 Calcium 7.9 mg/dL (8.4-10.2) L 10/23/18 03:20 Assessment and Plan Assessment and plan: Angioedema secondary to ACEI use -Status post epinephrine, Famotidine, steroid and Benadryl in the ED -We'll continue IV steroids, Famotidine and PRN Benadryl Hypertension -Controlled JENSEN -Continue CPAP at night Gout -No acute flare Morbid obesity with BMI of 40.9 -Lifestyle modification recommended DVT prophylaxis with Lovenox Disposition: Patient will be placed in observation status pending further treatment and evaluation Time spent: 35 minutes
[2018-10-23] MEDS: SOLU-Medrol IV SCH ×3 (06:39→17:07)
[2018-10-23] MEDS ORDERED: PROVENTIL IH SCH (08:00)
[2018-10-23] MEDS: LOVENOX SUB-Q SCH (11:06)
[2018-10-23] MEDS: PEPCID IV SCH (11:06)
[2018-10-23] MEDS: SODIUM CHLORIDE FLUSH SYRINGE 10 ML IV SCH (11:06)
--- NOTE | 2018-10-23 13:59 | Event Note ---
Date: 10/23/18 Patient seen and examined, clinically improving, no new complaints at this time. Will monitor overnight an anticipate discharge tomorrow.
[2018-10-24] MEDS: SOLU-Medrol IV SCH ×2 (00:14→06:22)
[2018-10-24 07:15] LABS: Alanine Aminotransferase 9 units/L (7-56); Albumin 3.2 g/dL (3.9-5); BUN/Creatinine Ratio 27; Blood Urea Nitrogen 16 mg/dL (9-20); Calcium 8.9 mg/dL (8.4-10.2); Hemolysis Index 4
[2018-10-24 08:00] VITALS: BP 142/85
--- NOTE | 2018-10-24 09:17 | Discharge Summary ---
Providers - Providers Date of Admission: 10/23/18 05:18 Attending physician: ELIA BARTH MD 10/23/18 13:04 Physical Therapy Evaluation and Treat [CONS] Routine Comment: Reason For Exam: Weakness Primary care physician: SHERRY EDWARD Hospitalization Reason for admission: angioedema Condition: Stable Hospital course: Patient is a 68-year-old male with history of hypertension and obstructive sleep apnea who presented to the ED on account of tongue swelling. Patient stated that he woke up this morning at about 2 AM with his tongue swollen. He has associated shortness of breath. No fever, chills, chest pain, orthopnea or PND. No headaches, nausea, vomiting, dizziness, syncope or loss of consciousness. He stated that he has been taking lisinopril for many years without any issues. Patient was treated for angioedema secondary to ACEI, he was treated with IV steroids, famotidine. His tongue swelling improved Discharge Diagnosis Angioedema secondary to ACEI use Hypertension JENSEN Gout Morbid obesity with BMI of 40.9 Disposition: TO HOME OR SELFCARE Time spent for discharge: 35 mins Core Measure Documentation - Palliative Care Palliative Care/ Comfort Measures: Not Applicable - Core Measures Any of the following diagnoses?: none Exam - Constitutional Vitals: Temp Pulse Resp BP Pulse Ox 97.6 F 69 18 142/85 96 10/24/18 08:00 10/24/18 07:22 10/24/18 07:22 10/24/18 07:22 10/24/18 07:22 General appearance: Present: no acute distress, well-nourished, obese - EENT Eyes: Present: PERRL, EOM intact ENT: hearing intact, clear oral mucosa, dentition normal - Neck Neck: Present: supple, normal ROM - Respiratory Respiratory effort: normal Respiratory: bilateral: CTA - Cardiovascular Rhythm: regular Heart Sounds: Present: S1 & S2. Absent: systolic murmur, diastolic murmur - Extremities Extremities: no ischemia, pulses intact, pulses symmetrical, No edema, normal temperature, normal color, Full ROM Peripheral Pulses: within normal limits - Abdominal General gastrointestinal: Present: soft, non-tender, non-distended, normal bowel sounds Male genitourinary: Present: deferred - Rectal Rectal Exam: deferred - Integumentary Integumentary: Present: clear, warm, dry - Musculoskeletal Musculoskeletal: strength equal bilaterally - Psychiatric Psychiatric: appropriate mood/affect - Neurologic Neurologic: CNII-XII intact, moves all extremities - Allied Health Allied health notes reviewed: nursing, social work Plan Activity: advance as tolerated, fall precautions Diet: low salt Special Instructions: record daily weights, record daily BP diary Follow up with: SHERRY EDWARD MD [Primary Care Provider] - 7 Days Prescriptions: predniSONE [Deltasone] 20 mg PO QDAY #10 tab Famotidine [Pepcid] 20 mg PO DAILY #5 tablet
[2018-10-24] MEDS: PEPCID IV SCH ×2 (09:33→09:34)
[2018-10-24] MEDS: LOVENOX SUB-Q SCH ×2 (09:33→09:35)
[2018-10-24] MEDS: SODIUM CHLORIDE FLUSH SYRINGE 10 ML IV SCH (09:34)
== END 2018-10-24 10:56 | disposition home or self-care (01) ==
LOC: ED 02:45 → SUATTDRO 02:45 → 2B-ACE 05:18
PROVIDERS: ADMIT Internal Medicine; ATTEND Internal Medicine
DX: T78.3XXA Angioneurotic edema, initial encounter (principal); I10 Essential (primary) hypertension; G47.33 Obstructive sleep apnea (adult) (pediatric); M10.9 Gout, unspecified; E66.01 Morbid (severe) obesity due to excess calories; G56.00 Carpal tunnel syndrome, unspecified upper limb; Z68.41 Body mass index [BMI] 40.0-44.9, adult; Z88.8 Allergy status to other drugs, medicaments and biological substances; Z88.0 Allergy status to penicillin; Z90.49 Acquired absence of other specified parts of digestive tract
CPT/HCPCS: 36415; 80048; 80053; 83735; 85025; 94640; 94660; 96372; 96374; 96375; 96376; 99284; G0378; J0171; J1100; J1200; J1650; J2920

== ENCOUNTER 2018-12-11 22:15 | Emergency (ER) | payer MEDICARE ==
[2018-12-11 22:42] VITALS: BP 206/101
[2018-12-11] MEDS ORDERED: TYLENOL ONE (22:43)
[2018-12-11] MEDS ORDERED: TYLENOL PO ONE (22:43)
[2018-12-11] MEDS ORDERED: CATAPRES PO ONE (22:49)
[2018-12-11] MEDS ORDERED: CATAPRES ONE (22:49)
[2018-12-12 00:27] LABS: Basophils % (Auto) 0.6 % (0.0-1.8); Eosinophils % (Auto) 0.6 % (0.0-4.3); Hemoglobin 11.6 gm/dl (11.8-15.2); Lymphocytes # (Auto) 1.9 K/mm3 (1.2-5.4); Lymphocytes % (Auto) 22.3 % (13.4-35.0); Mean Corpuscular HGB Conc 33 % (32-34); Mean Corpuscular Hemoglobin 27 pg (28-32); Mean Corpuscular Volume 81 fl (84-94); Monocytes # (Auto) 0.7 K/mm3 (0.0-0.8); Monocytes % (Auto) 7.6 % (0.0-7.3); Platelet Count 259 K/mm3 (140-440); Red Blood Count 4.31 M/mm3 (3.65-5.03)
[2018-12-12 00:43] LABS: BUN/Creatinine Ratio 19; Blood Urea Nitrogen 17 mg/dL (9-20); Hemolysis Index 10
[2018-12-12] MEDS ORDERED: ZOFRAN ODT PO ONE (00:45)
[2018-12-12] MEDS ORDERED: NORCO 10/325 PO ONE (00:45)
--- NOTE | 2018-12-12 01:00 | Emergency Department Report ---
ED General Adult HPI - General Chief complaint: Extremity Injury, Upper Stated complaint: LEFT ARM PAIN Time Seen by Provider: 12/12/18 00:33 Source: patient Mode of arrival: Ambulatory Limitations: Language Barrier - History of Present Illness Initial comments: Patient presents to the emergency department with chief complaint left wrist pain. Patient states she has a history of gout and this wrist pain feels similar to prior flareups. Patient denies any change in diet. -: Sudden Location: upper extremity Radiation: non-radiation Severity scale (0 -10): 10 Consistency: constant Improves with: none Worsens with: none Associated Symptoms: denies other symptoms Treatments Prior to Arrival: none - Related Data Home Medications Medication Instructions Recorded Confirmed Last Taken Carvedilol [Coreg] 12.5 mg PO BID 01/27/17 10/23/18 1 Day Ago ~01/26/17 6.25 amLODIPine [Norvasc] 10 mg PO DAILY 01/27/17 10/23/18 1 Day Ago ~01/26/17 10 Colchicine [Colcrys] 0.6 mg PO PRN 10/23/18 10/23/18 Unknown Previous Rx's Medication Instructions Recorded Last Taken Type Famotidine [Pepcid] 20 mg PO DAILY #5 tablet 10/24/18 Unknown Rx predniSONE [Deltasone] 20 mg PO QDAY #10 tab 10/24/18 Unknown Rx HYDROcodone/APAP 7.5-325 [[place] 1 each PO Q6HR PRN #15 tablet 12/12/18 Unknown Rx 7.5/325] Ibuprofen [Motrin] 800 mg PO Q8HR PRN #30 tablet 12/12/18 Unknown Rx predniSONE [Deltasone] 20 mg PO DAILY #15 tablet 12/12/18 Unknown Rx Allergies Allergy/AdvReac Type Severity Reaction Status Date / Time Penicillins Allergy Itching Verified 10/13/13 11:17 lisinopril AdvReac Angioedema Verified 10/23/18 04:30 ED Review of Systems ROS: Stated complaint: LEFT ARM PAIN Other details as noted in HPI Comment: All other systems reviewed and negative Constitutional: denies: chills, fever Eyes: denies: eye pain, eye discharge, vision change ENT: denies: ear pain, throat pain Respiratory: denies: cough, shortness of breath, wheezing Cardiovascular: denies: chest pain, palpitations Endocrine: no symptoms reported Gastrointestinal: denies: abdominal pain, nausea, diarrhea Genitourinary: denies: urgency, dysuria Musculoskeletal: denies: back pain, joint swelling, arthralgia Skin: denies: rash, lesions Neurological: denies: headache, weakness, paresthesias Psychiatric: denies: anxiety, depression Hematological/Lymphatic: denies: easy bleeding, easy bruising ED Past Medical Hx - Past Medical History Previous Medical History?: Yes Hx Hypertension: Yes Hx CVA: No Additional medical history: sleep apnea, gout, carpal tunnel - Surgical History Hx Appendectomy: Yes Additional Surgical History: hernia repair, bilat carpal tunnel repair, knee replacement - Social History Smoking Status: Never Smoker Substance Use Type: Alcohol - Medications Home Medications: Home Medications Medication Instructions Recorded Confirmed Last Taken Type Carvedilol [Coreg] 12.5 mg PO BID 01/27/17 10/23/18 1 Day Ago History ~01/26/17 6.25 amLODIPine [Norvasc] 10 mg PO DAILY 01/27/17 10/23/18 1 Day Ago History ~01/26/17 10 Colchicine [Colcrys] 0.6 mg PO PRN 10/23/18 10/23/18 Unknown History Famotidine [Pepcid] 20 mg PO DAILY #5 tablet 10/24/18 Unknown Rx predniSONE [Deltasone] 20 mg PO QDAY #10 tab 10/24/18 Unknown Rx HYDROcodone/APAP 7.5-325 [[place] 1 each PO Q6HR PRN #15 tablet 12/12/18 Unknown Rx 7.5/325] Ibuprofen [Motrin] 800 mg PO Q8HR PRN #30 tablet 12/12/18 Unknown Rx predniSONE [Deltasone] 20 mg PO DAILY #15 tablet 12/12/18 Unknown Rx ED Physical Exam - General Limitations: Language Barrier General appearance: alert, in no apparent distress - Head Head exam: Present: atraumatic, normocephalic - Eye Eye exam: Present: normal appearance - ENT ENT exam: Present: mucous membranes moist - Neck Neck exam: Present: normal inspection - Rectal Rectal exam: Present: deferred - Extremities Exam Extremities exam: Present: other (patient swelling to the left wrist with tenderness to palpation on the dorsal aspect of the carpals; ) - Back Exam Back exam: Present: normal inspection - Neurological Exam Neurological exam: Present: alert, oriented X3, CN II-XII intact. Absent: motor sensory deficit - Psychiatric Psychiatric exam: Present: normal affect, normal mood - Skin Skin exam: Present: warm, dry, intact, normal color. Absent: rash ED Course Vital Signs 12/11/18 12/11/18 22:41 22:53 Temperature 97.6 F Pulse Rate 79 79 Respiratory 18 Rate Blood Pressure 206/101 206/101 O2 Sat by Pulse 96 Oximetry ED Medical Decision Making - Lab Data Result diagrams: 12/11/18 22:54 12/11/18 22:54 Lab Results 12/11/18 12/11/18 Range/Units 22:54 22:54 WBC 8.5 (4.5-11.0) K/mm3 RBC 4.31 (3.65-5.03) M/mm3 Hgb 11.6 L (11.8-15.2) gm/dl Hct 35.0 L (35.5-45.6) % MCV 81 L (84-94) fl MCH 27 L (28-32) pg MCHC 33 (32-34) % RDW 17.0 H (13.2-15.2) % Plt Count 259 (140-440) K/mm3 Lymph % (Auto) 22.3 (13.4-35.0) % [place] % (Auto) 7.6 H (0.0-7.3) % Eos % (Auto) 0.6 (0.0-4.3) % Baso % (Auto) 0.6 (0.0-1.8) % Lymph # 1.9 (1.2-5.4) K/mm3 [place] # 0.7 (0.0-0.8) K/mm3 Eos # 0.0 (0.0-0.4) K/mm3 Baso # 0.0 (0.0-0.1) K/mm3 Seg Neutrophils % 68.9 (40.0-70.0) % Seg Neutrophils # 5.9 (1.8-7.7) K/mm3 Sodium 141 (137-145) mmol/L Potassium 3.8 (3.6-5.0) mmol/L Chloride 100.9 (98-107) mmol/L Carbon Dioxide 31 H (22-30) mmol/L Anion Gap 13 mmol/L BUN 17 (9-20) mg/dL Creatinine 0.9 (0.8-1.5) mg/dL Estimated GFR > 60 ml/min BUN/Creatinine Ratio 19 % Glucose 101 H (75-100) mg/dL Calcium 8.0 L (8.4-10.2) mg/dL Critical care attestation.: If time is entered above; I have spent that time in minutes in the direct care of this critically ill patient, excluding procedure time. ED Disposition Clinical Impression: Acute pain of left wrist, Gout attack Disposition: TO HOME OR SELFCARE Is pt being admited?: No Does the pt Need Aspirin: No Condition: Stable Instructions: Acute Gouty Arthritis (ED) Additional Instructions: return if worse Prescriptions: predniSONE [Deltasone] 20 mg PO DAILY #15 tablet Ibuprofen [Motrin] 800 mg PO Q8HR PRN #30 tablet PRN Reason: Pain HYDROcodone/APAP 7.5-325 [[place] 7.5/325] 1 each PO Q6HR PRN #15 tablet PRN Reason: Pain Referrals: [facility] [Provider Group] - 3-5 Days [facility] [Provider Group] - 3-5 Days Time of Disposition: 01:00
== END 2018-12-12 01:45 | disposition home or self-care (01) ==
LOC: ED 22:15
DX: M10.032 Idiopathic gout, left wrist (principal); I10 Essential (primary) hypertension; Z90.49 Acquired absence of other specified parts of digestive tract; Z96.659 Presence of unspecified artificial knee joint; Z79.899 Other long term (current) drug therapy; Z88.0 Allergy status to penicillin; Z88.8 Allergy status to other drugs, medicaments and biological substances
CPT/HCPCS: 36415; 80048; 85025; 99283; Q0162

== ENCOUNTER 2019-06-22 06:48 | Observation (INO) | payer MEDICARE ==
[2019-06-22] MEDS ORDERED: SODIUM CHLORIDE 0.9% 1000 ML 1,000 ML IV ONE (07:31)
[2019-06-22 08:01] LABS: Basophils % (Auto) 0.4 % (0.0-1.8); Eosinophils % (Auto) 0.6 % (0.0-4.3); Hematocrit 33.1 % (35.5-45.6); Hemoglobin 10.7 gm/dl (11.8-15.2); Lymphocytes # (Auto) 1.2 K/mm3 (1.2-5.4); Lymphocytes % (Auto) 14.1 % (13.4-35.0); Mean Corpuscular HGB Conc 33 % (32-34); Mean Corpuscular Volume 77 fl (84-94); Monocytes # (Auto) 0.7 K/mm3 (0.0-0.8); Monocytes % (Auto) 8.7 % (0.0-7.3); Platelet Count 245 K/mm3 (140-440); Red Blood Count 4.31 M/mm3 (3.65-5.03)
[2019-06-22 08:12] LABS: INR 1.03 (0.87-1.13); Partial Thromboplastin Time 28.6 Sec. (24.2-36.6)
--- NOTE | 2019-06-22 08:13 | XRay Report ---
CHEST 1 VIEW INDICATION: hypotension. COMPARISON: 01/26/2017 FINDINGS: Support devices: None. Heart: Within normal limits. Lungs/Pleura: No acute air space or interstitial disease. Additional findings: None. IMPRESSION: 1. No acute findings. Signer Name: Brian Pat MD Signed: 06/22/2019 8:08 AM Workstation Name: [id number]
[2019-06-22 08:20] LABS: BUN/Creatinine Ratio 34; Blood Urea Nitrogen 37 mg/dL (9-20); Calcium 8.7 mg/dL (8.4-10.2); Hemolysis Index 8
--- NOTE | 2019-06-22 08:23 | Emergency Department Report ---
ED General Adult HPI - General Chief complaint: Dizziness Stated complaint: GENERAL WEAKNESS Time Seen by Provider: 06/22/19 07:30 Source: EMS Mode of arrival: Wheelchair Limitations: No Limitations - History of Present Illness Initial comments: This is a 68-year-old man that has a history of hypertension and gout. He denies a history of congestive heart failure or any heart problems. He denies diabetes and COPD. He states he went to his primary care doctor who decided to put him on another diuretic (metolazone). He takes a pill this morning comb ination with his Lasix and verapamil. -: Gradual Radiation: non-radiation Severity scale (0 -10): 2 Quality: other Consistency: constant Improves with: none Worsens with: none Associated Symptoms: denies other symptoms Treatments Prior to Arrival: none - Related Data Home Medications Medication Instructions Recorded Confirmed Last Taken AtorvaSTATin [Lipitor] 20 mg PO QHS 06/22/19 06/22/19 Unknown Colchicine 0.6 mg PO QDAY 06/22/19 06/22/19 Unknown Doxazosin [Cardura] 4 mg PO QDAY 06/22/19 06/22/19 Unknown Furosemide [Lasix TAB] 40 mg PO QDAY 06/22/19 06/22/19 Unknown Losartan [Cozaar] 50 mg PO QDAY 06/22/19 06/22/19 Unknown Verapamil [Calan] 120 mg PO QDAY 06/22/19 06/22/19 Unknown carvediloL [Coreg] 12.5 mg PO BID 06/22/19 06/22/19 Unknown metOLazone [Zaroxolyn] 5 mg PO QDAY 06/22/19 06/22/19 06/22/19 Allergies Allergy/AdvReac Type Severity Reaction Status Date / Time Penicillins Allergy Itching Verified 10/13/13 11:17 lisinopril AdvReac Angioedema Verified 10/23/18 04:30 ED Review of Systems ROS: Stated complaint: GENERAL WEAKNESS Other details as noted in HPI Constitutional: weakness. denies: chills, fever Eyes: denies: eye pain, eye discharge, vision change ENT: denies: ear pain, throat pain Respiratory: denies: cough, shortness of breath, wheezing Cardiovascular: denies: chest pain, palpitations Endocrine: no symptoms reported Gastrointestinal: denies: abdominal pain, nausea, vomiting, diarrhea Genitourinary: denies: urgency, dysuria Musculoskeletal: denies: back pain, joint swelling, arthralgia Skin: denies: rash, lesions Neurological: denies: headache, weakness, paresthesias Psychiatric: denies: anxiety, depression Hematological/Lymphatic: denies: easy bleeding, easy bruising ED Past Medical Hx - Past Medical History Previous Medical History?: Yes Hx Hypertension: Yes Hx CVA: No Additional medical history: sleep apnea, gout, carpal tunnel. "heart probs" - Surgical History Past Surgical History?: Yes Hx Appendectomy: Yes Additional Surgical History: hernia repair, bilat carpal tunnel repair, knee replacement - Social History Smoking Status: Never Smoker Substance Use Type: None - Medications Home Medications: Home Medications Medication Instructions Recorded Confirmed Last Taken Type AtorvaSTATin [Lipitor] 20 mg PO QHS 06/22/19 06/22/19 Unknown History Colchicine 0.6 mg PO QDAY 06/22/19 06/22/19 Unknown History Doxazosin [Cardura] 4 mg PO QDAY 06/22/19 06/22/19 Unknown History Furosemide [Lasix TAB] 40 mg PO QDAY 06/22/19 06/22/19 Unknown History Losartan [Cozaar] 50 mg PO QDAY 06/22/19 06/22/19 Unknown History Verapamil [Calan] 120 mg PO QDAY 06/22/19 06/22/19 Unknown History carvediloL [Coreg] 12.5 mg PO BID 06/22/19 06/22/19 Unknown History metOLazone [Zaroxolyn] 5 mg PO QDAY 06/22/19 06/22/19 06/22/19 History ED Physical Exam - General Limitations: No Limitations General appearance: alert, in no apparent distress - Head Head exam: Present: atraumatic, normocephalic - Eye Eye exam: Present: normal appearance. Absent: scleral icterus - ENT ENT exam: Present: mucous membranes moist - Neck Neck exam: Present: normal inspection. Absent: tenderness, meningismus - Respiratory Respiratory exam: Present: normal lung sounds bilaterally. Absent: respiratory distress - Cardiovascular Cardiovascular Exam: Present: regular rate, normal rhythm. Absent: systolic murmur, diastolic murmur, rubs, gallop - GI/Abdominal GI/Abdominal exam: Present: soft, normal bowel sounds. Absent: distended, tenderness, guarding, rebound, rigid - Rectal Rectal exam: Present: deferred - Extremities Exam Extremities exam: Present: normal inspection - Back Exam Back exam: Present: normal inspection - Neurological Exam Neurological exam: Present: alert, oriented X3, CN II-XII intact. Absent: motor sensory deficit - Psychiatric Psychiatric exam: Present: normal affect, normal mood - Skin Skin exam: Present: warm, dry, intact, normal color. Absent: rash ED Course Vital Signs 06/22/19 06/22/19 06/22/19 06:59 07:53 08:53 Temperature 97.9 F Pulse Rate 64 60 51 L Respiratory 18 16 16 Rate Blood Pressure 84/44 123/58 136/64 [Right] O2 Sat by Pulse 92 94 96 Oximetry 06/22/19 06/22/19 06/22/19 09:13 13:04 14:20 Temperature Pulse Rate 58 L 63 62 Respiratory 16 16 Rate Blood Pressure 132/64 126/65 155/71 [Right] O2 Sat by Pulse 99 97 98 Oximetry - Reevaluation(s) Reevaluation #1: She remained stable with good pulse oximetry. He has had a CTA. 06/22/19 13:07 ED Medical Decision Making - Lab Data Result diagrams: 06/22/19 07:44 06/22/19 07:44 Laboratory Results - last 24 hr 06/22/19 06/22/19 06/22/19 07:40 07:44 07:44 WBC 8.3 RBC 4.31 Hgb 10.7 L Hct 33.1 L MCV 77 L MCH 25 L MCHC 33 RDW 18.0 H Plt Count 245 Lymph % (Auto) 14.1 [place] % (Auto) 8.7 H Eos % (Auto) 0.6 Baso % (Auto) 0.4 Lymph # 1.2 Ellsworth # 0.7 Eos # 0.0 Baso # 0.0 Seg Neutrophils % 76.2 H Seg Neutrophils # 6.3 PT 13.6 INR 1.03 APTT 28.6 D-Dimer 1170.04 H Sodium Potassium Chloride Carbon Dioxide Anion Gap BUN Creatinine Estimated GFR BUN/Creatinine Ratio Glucose Lactic Acid Calcium Magnesium Total Bilirubin Direct Bilirubin Indirect Bilirubin AST ALT Alkaline Phosphatase Total Creatine Kinase CK-MB (CK-2) CK-MB (CK-2) Rel Index Troponin T NT-Pro-B Natriuret Pep Total Protein Albumin Albumin/Globulin Ratio Blood Type O POSITIVE Antibody Screen Negative 06/22/19 06/22/19 06/22/19 07:44 07:44 07:44 WBC RBC Hgb Hct MCV MCH MCHC RDW Plt Count Lymph % (Auto) Ell[place] % (Auto) Eos % (Auto) Baso % (Auto) Lymph # [place] # Eos # Baso # Seg Neutrophils % Seg Neutrophils # PT INR APTT D-Dimer Sodium 139 Potassium 3.8 Chloride 97.2 L Carbon Dioxide 27 Anion Gap 19 BUN 37 H Creatinine 1.1 Estimated GFR > 60 BUN/Creatinine Ratio 34 Glucose 103 H Lactic Acid 1.60 Calcium 8.7 Magnesium 2.00 Total Bilirubin 0.60 Direct Bilirubin < 0.2 Indirect Bilirubin 0.4 AST 14 ALT 12 Alkaline Phosphatase 71 Total Creatine Kinase 59 CK-MB (CK-2) < 1.0 CK-MB (CK-2) Rel Index 1.6 Troponin T < 0.010 NT-Pro-B Natriuret Pep 73.47 Total Protein 7.0 Albumin 3.6 L Albumin/Globulin Ratio 1.1 Blood Type Antibody Screen - EKG Data -: EKG Interpreted by Ne EKG shows normal: sinus rhythm Rate: bradycardia - EKG Data Interpretation: nonspecific ST-T wave bryan There are inverted T waves in the precordial leads. no comparison available. 06/22/19 14:39 - Radiology Data Radiology results: report reviewed (small nodes renal no PE) Critical care attestation.: If time is entered above; I have spent that time in minutes in the direct care of this critically ill patient, excluding procedure time. ED Disposition Clinical Impression: Abnormal EKG, Prerenal azotemia, Microcytic anemia, Pulmonary nodule, left Hypotension Qualifiers: Hypotension type: unspecified hypotension type Qualified Code(s): I95.9 - Hypotension, unspecified Disposition: DC-09 OP ADMIT IP TO THIS HOSP Is pt being admited?: Yes Does the pt Need Aspirin: Yes Condition: Stable Time of Disposition: 14:40
[2019-06-22 08:26] LABS: Alanine Aminotransferase 12 units/L (7-56); Albumin 3.6 g/dL (3.9-5)
[2019-06-22 08:31] LABS: Creatine Kinase MB < 1.0 ng/mL (0.0-4.0)
[2019-06-22 08:32] LABS: Bilirubin,Direct < 0.2 mg/dL (0-0.2)
--- NOTE | 2019-06-22 13:50 | Cat Scan Report ---
CTA chest with contrast INDICATION : elevated dimer hypotension. TECHNIQUE: Axial imaging performed through the chest, with contrast bolus timing set to maximize opa cification of the pulmonary arteries. 3-plane MIP reformatted images were obtained. All CT scans at this location are performed using CT dose reduction for ALARA by means of automated exposure control. 100 mL of intravenous contrast administered. COMPARISON: CTA chest from 04/16/2017 FINDINGS: Bolus: Contrast bolus timing is adequate. PTE: No filling defect is present to suggest PTE. Mediastinum: Heart and great vessels appear normal. No pathologic mediastinal adenopathy. Lungs: There is mild scattered atelectasis including a 6 mm nodule pleural-based density in the left upper lobe on image 155. The lungs are otherwise clear. Upper abdomen: Limited imaging of the upper abdomen shows nothing acute. Simple cyst in the upper p ole the right kidney. Bones: Degenerative changes in the spine with nothing acute. IMPRESSION: 1. Negative for PTE. 2. Scattered atelectasis with 6 mm nodular pleural-based density in the left upper lobe as above. Ple ase see below recommendations. INCIDENTAL PULMONARY NODULE RECOMMENDATIONS Solid Nodule size 6-8 mm -- Single - Low Risk Patient: CT at 6-12 months, then consider CT at 18-24 months - High Risk Patient: CT at 6-12 months, then CT at 18-24 months Note These recommendations do not apply to lung cancer screening, patients with immunosuppression, o r patients with known primary cancer. Note Newly detected indeterminate nodule in persons 35 years of age or older. Persons under the age of 35 should not receive follow-up unless there is a known primary cancer. Low Risk Patient -- minimal or absent history of smoking and of other known risk factors. High Risk Patient -- history of smoking or of other known risk factors. Nodule dimensions are average of long and short axes, rounded to the nearest millimeter. Based on 2017 Fleischner Society Guidelines found in Radiology 2017 284:228-243. https://doi.org/10.1 148/radiol.[email or web address] Signer Name: Brian Pat MD Signed: 06/22/2019 1:46 PM Workstation Name: [id number]
[2019-06-22 14:13] LABS: Bilirubin,Urine NEG (Negative); Blood,Urine NEG (Negative); Color,Urine Yellow (Yellow); Mucus,Urine FEW /HPF; Urobilinogen,Urine < 2.0 mg/dL (<2.0); WBC,Urine < 1.0 /HPF (0.0-6.0)
--- NOTE | 2019-06-22 16:29 | History and Physical Report ---
History of Present Illness Date of examination: 06/22/19 Date of admission: 06/22/19 13:25 Chief complaint: Dizziness, gen weakness, near syncope Medications and Allergies Allergies Allergy/AdvReac Type Severity Reaction Status Date / Time Penicillins Allergy Itching Verified 10/13/13 11:17 lisinopril AdvReac Angioedema Verified 10/23/18 04:30 Home Medications Medication Instructions Recorded Confirmed Last Taken Type AtorvaSTATin [Lipitor] 20 mg PO QHS 06/22/19 06/22/19 Unknown History Colchicine 0.6 mg PO QDAY 06/22/19 06/22/19 Unknown History Doxazosin [Cardura] 4 mg PO QDAY 06/22/19 06/22/19 Unknown History Furosemide [Lasix TAB] 40 mg PO QDAY 06/22/19 06/22/19 Unknown History Losartan [Cozaar] 50 mg PO QDAY 06/22/19 06/22/19 Unknown History Verapamil [Calan] 120 mg PO QDAY 06/22/19 06/22/19 Unknown History carvediloL [Coreg] 12.5 mg PO BID 06/22/19 06/22/19 Unknown History metOLazone [Zaroxolyn] 5 mg PO QDAY 06/22/19 06/22/19 06/22/19 History Active Meds: Active Medications Aspirin (Baby Aspirin) 81 mg PO QDAY E[facility] Atorvastatin Calcium (Lipitor) 20 mg PO QHS ELAINE Colchicine (Colchicine) 0.6 mg PO QDAY ELAINE Exam - Physical Exam Narrative exam: GEN: Not in acute distress, lying in bed,obese HEENT: Normocephalic, atraumatic, Neck: supple, No JVD Lungs: Clear to auscultation bilaterally, no wheeze, heart;S1 and S2 reg, no murmurs Abd:soft, non tender, non distended, normal bowel sounds Ext: No edema, no clubbing, no cyanosis Neuro: AAO X 3, no focal neurological signs - Constitutional Vitals: Temp Pulse Resp BP Pulse Ox 97.9 F 61 16 146/71 98 06/22/19 06:59 06/22/19 15:16 06/22/19 15:16 06/22/19 15:16 06/22/19 15:16 Results - Labs CBC & Chem 7: 06/22/19 07:44 06/22/19 07:44 Labs: Abnormal lab results 06/22/19 06/22/19 06/22/19 Range/Units 07:44 07:44 07:44 Hgb 10.7 L (11.8-15.2) gm/dl Hct 33.1 L (35.5-45.6) % MCV 77 L (84-94) fl MCH 25 L (28-32) pg RDW 18.0 H (13.2-15.2) % Starr % (Auto) 8.7 H (0.0-7.3) % Seg Neutrophils % 76.2 H (40.0-70.0) % D-Dimer 1170.04 H (0-234) ng/mlDDU Chloride 97.2 L (98-107) mmol/L BUN 37 H (9-20) mg/dL Glucose 103 H (75-100) mg/dL Albumin (3.9-5) g/dL 06/22/19 Range/Units 07:44 Hgb (11.8-15.2) gm/dl Hct (35.5-45.6) % MCV (84-94) fl MCH (28-32) pg RDW (13.2-15.2) % Starr % (Auto) (0.0-7.3) % Seg Neutrophils % (40.0-70.0) % D-Dimer (0-234) ng/mlDDU Chloride (98-107) mmol/L BUN (9-20) mg/dL Glucose (75-100) mg/dL Albumin 3.6 L (3.9-5) g/dL Assessment and Plan Dizziness dehydration Near syncope HTN Hyperlipidemia
[2019-06-22] MEDS ORDERED: SODIUM CHLORIDE 0.9% 1000 ML 1,000 ML IV SCH (17:30)
[2019-06-22] MEDS: ASPIRIN 81 MG TAB CHEW PO SCH (17:42)
[2019-06-22] MEDS ORDERED: ALBUTEROL 2.5 MG/3 ML NEBU IH PRN (18:02)
[2019-06-22] MEDS ORDERED: MORPHINE 2 MG/1 ML INJ IV PRN (18:02)
[2019-06-22] MEDS ORDERED: ONDANSETRON 4 MG/2 ML INJ IV PRN (18:02)
[2019-06-22] MEDS: ACETAMINOPHEN 325 MG TAB PO PRN ×2 (18:32→23:11)
[2019-06-23 06:49] LABS: BUN/Creatinine Ratio 31; Blood Urea Nitrogen 25 mg/dL (9-20); Calcium 8.3 mg/dL (8.4-10.2); Hemolysis Index 3
[2019-06-23] MEDS: ASPIRIN 81 MG TAB CHEW PO SCH (09:34)
[2019-06-23] MEDS ORDERED: COLCHICINE 0.6 MG CAP PO SCH (10:00)
--- NOTE | 2019-06-23 13:56 | Consultation ---
History of Present Illness - Reason for Consult Consult date: 06/23/19 Bacteremia Requesting physician: MARGARITA KERR - History of Present Illness The patient is a 58-year-old male with hypertension and gout came into the emergency room yesterday after he felt somewhat lightheaded and fell. He had recently started a new diuretic and had taken several of his medications around that time, following this he felt weak and lost his balance. He called the ambulance and was brought to the hospital. Has any fevers or chills. Denies any nausea, vomiting or diarrhea. Denies any cough, shortness of breath or chest pain. He was given gentle hydration. Blood cultures on admission are growing gram-positive cocci hence infectious diseases was consulted. Review of Systems: General: no fevers,chills or rigors HEENT: no new visual disturbance Respiratory: No cough, sputum, hemoptysis or shortness of breath Cardiovascular: No chest pain, syncope Gastrointestinal: No nausea, vomiting or diarrhea Genitourinary: No dysuria or hematuria Musculoskeletal: No new or worsening neck pain or back pain Neurologic: No headaches, seizures Hematologic: No easy bruising or bleeding Endocrine: No night sweats or acute weight loss Skin: negative for rash, jaundice Psychiatric: No suicidal or homicidal ideation Medications and Allergies Allergies Allergy/AdvReac Type Severity Reaction Status Date / Time Penicillins Allergy Itching Verified 10/13/13 11:17 lisinopril AdvReac Angioedema Verified 10/23/18 04:30 Home Medications Medication Instructions Recorded Confirmed Last Taken Type AtorvaSTATin [Lipitor] 20 mg PO QHS 06/22/19 06/22/19 Unknown History Colchicine 0.6 mg PO QDAY 06/22/19 06/22/19 Unknown History Doxazosin [Cardura] 4 mg PO QDAY 06/22/19 06/22/19 Unknown History Furosemide [Lasix TAB] 40 mg PO QDAY 06/22/19 06/22/19 Unknown History Losartan [Cozaar] 50 mg PO QDAY 06/22/19 06/22/19 Unknown History Verapamil [Calan] 120 mg PO QDAY 06/22/19 06/22/19 Unknown History carvediloL [Coreg] 12.5 mg PO BID 06/22/19 06/22/19 Unknown History metOLazone [Zaroxolyn] 5 mg PO QDAY 0106/22/19 06/22/19 History Active Meds: Active Medications Acetaminophen (Tylenol) 650 mg PO Q4H PRN PRN Reason: Pain MILD(1-3)/Fever >100.5/PEÑA Last Admin: 06/22/19 23:11 Dose: 650 mg Documented by: Albuterol (Proventil) 2.5 mg IH Q4HRT PRN PRN Reason: Shortness Of Breath Aspirin (Baby Aspirin) 81 mg PO QDAY [facility] Last Admin: 06/23/19 09:34 Dose: 81 mg Documented by: Atorvastatin Calcium (Lipitor) 20 mg PO QHS [facility] Last Admin: 06/22/19 23:07 Dose: 20 mg Documented by: Colchicine (Colchicine) 0.6 mg PO QDAY [facility] Last Admin: 06/23/19 09:34 Dose: 0.6 mg Documented by: Sodium Chloride (Nacl 0.9% 1000 Ml) 1,000 mls @ 42 mls/hr IV DIRECT [facility] Last Admin: 06/22/19 18:24 Dose: 42 mls/hr Documented by: Morphine Sulfate (Morphine) 2 mg IV Q4H PRN PRN Reason: Pain, Moderate (4-6) Ondansetron HCl (Zofran) 4 mg IV Q8H PRN PRN Reason: Nausea And Vomiting Sodium Chloride (Sodium Chloride Flush Syringe 10 Ml) 10 ml IV BID [facility] Last Admin: 06/23/19 09:34 Dose: 10 ml Documented by: Sodium Chloride (Sodium Chloride Flush Syringe 10 Ml) 10 ml IV PRN PRN PRN Reason: LINE FLUSH Physical Examination - Physical Exam Narrative exam: Physical Exam: Constitutional: Alert, cooperative. No acute distress Head, Ears, Nose: Normocephalic, atraumatic. External ears, nose normal Eyes: Conjunctivae/corneas clear. No icterus. No ptosis. Neck: Supple, no meningeal signs Oral: no thrush Cardiovascular: S1, S2 normal. Respiratory: Good air entry, clear to auscultation bilaterally GI: Soft, non-tender; bowel sounds normal. No peritoneal signs Musculoskeletal: No pedal edema, no cyanosis. Left old TKA, well healed Skin: No rash or abscess Hem/Lymphatic: No palpable cervical or supraclavicular nodes. No lymphangitis Psych: Mood ok. Affect normal Neurological: Awake, alert, oriented. No gross abnormality - Constitutional Vitals: Vital Signs Temp Pulse Resp BP Pulse Ox 98.1 F 61 20 140/62 91 06/23/19 07:21 06/23/19 07:21 06/23/19 07:21 06/23/19 07:21 06/23/19 07:21 Temperature -Last 24 Hours Temperature 98.1 F Temperature 98.3 F Temperature 98.8 F Temperature 98.6 F Results - Labs CBC & Chem 7: 06/23/19 13:43 06/23/19 05:37 Labs: Abnormal lab results 06/22/19 06/23/19 Range/Units 18:42 05:37 BUN 25 H (9-20) mg/dL POC Glucose 146 H (70-105) Calcium 8.3 L (8.4-10.2) mg/dL - Imaging and Cardiology Chest x-ray: report reviewed, image reviewed (no pneumonia) Assessment and Plan Cultures: 06/22/2019 blood culture: One out of 4 bottles positive for GPC 06/22/2019 urine culture: No growth A/P: 58-year-old male with hypertension and gout, also old L TKA admitted with dizziness following medication ingestion: #GPC bacteremia: 1/4 bottles positive. Suspect contaminant. No symptoms of infection, no fever or leucocytosis. #Dizziness: ?meds related. Defer to primary. Recs: no abx need at this time, suspect contaminant need to follow up ID of the GPC if patient is discharged D/W Dr. Joel Urrutia MD, FACP [facility] C: [phone] O: [phone] F: [phone]
[2019-06-23 13:57] LABS: Hematocrit 32.1 % (35.5-45.6); Hemoglobin 10.3 gm/dl (11.8-15.2); Mean Corpuscular HGB Conc 32 % (32-34); Mean Corpuscular Volume 77 fl (84-94); Platelet Count 235 K/mm3 (140-440); Red Blood Count 4.15 M/mm3 (3.65-5.03); Red Cell Distribution Width 17.5 % (13.2-15.2)
[2019-06-23 14:35] VITALS: BP 138/70
--- NOTE | 2019-06-23 15:46 | Discharge Summary ---
Providers - Providers Date of Admission: 06/22/19 13:25 Date of discharge: 06/23/19 Attending physician: MARGARITA KERR 06/22/19 17:57 Physical Therapy Evaluation and Treat [CONS] Routine Comment: Reason For Exam: weakness and dizziness 06/23/19 11:29 Consult to Physician [CONS] Routine Comment: Consulting Provider: JOVITA COLEMAN Physician Instructions: Reason For Exam: Gram pos cocci pos, 1 in 2 Primary care physician: HENRY WILLETT MD Hospitalization Condition: Stable Disposition: DC- TO HOME OR SELFCARE Exam - Constitutional Vitals: Temp Pulse Resp BP Pulse Ox 98.7 F 65 20 138/70 90 06/23/19 14:01 06/23/19 14:01 06/23/19 14:01 06/23/19 14:01 06/23/19 14:01 Plan Activity: advance as tolerated Diet: low fat, low cholesterol, low salt, diabetic Special Instructions: other (Hold Verapamil,Metolazone, Doxazosin and Aldactone to be resumed by PCP when BP improves) Plan of Treatment: 1.Follow up with PCP in 1 week. Follow up with: PRIMARY CAREMD [Primary Care Provider] - 3-5 Days
== END 2019-06-23 17:20 | disposition home or self-care (01) ==
LOC: ED 06:48 → 3A 13:25 → 2B-ACE 14:55
PROVIDERS: ADMIT Internal Medicine; ATTEND Internal Medicine
DX: E86.0 Dehydration (principal); R55 Syncope and collapse; I95.9 Hypotension, unspecified; I10 Essential (primary) hypertension; E78.5 Hyperlipidemia, unspecified; M10.9 Gout, unspecified; R94.31 Abnormal electrocardiogram [ECG] [EKG]; R79.89 Other specified abnormal findings of blood chemistry; D50.9 Iron deficiency anemia, unspecified; R91.1 Solitary pulmonary nodule; H10.419 Chronic giant papillary conjunctivitis, unspecified eye; R42 Dizziness and giddiness; Z88.0 Allergy status to penicillin; Z79.82 Long term (current) use of aspirin; Z79.899 Other long term (current) drug therapy
CPT/HCPCS: 36415; 71045; 71275; 80048; 80076; 81001; 82140; 82550; 82553; 82962; 83735; 83880; 84484; 85025; 85027; 85379; 85610; 85730; 86850; 86900; 86901; 87040; 87086; 93005; 93010; 94660; 96360; 96361; 97116; 97162; 99284; A9270; G0378; J7030; Q9967